=== PATIENT | female | born 1995 | race Two or more races ===

== ENCOUNTER 2021-07-21 10:02 | Emergency (ER) | payer OTHER | END 2021-07-21 11:08 | disposition home or self-care (01) | LOC: CSHERS 10:02 | DX: H66.93 Otitis media, unspecified, bilateral (principal); H10.9 Unspecified conjunctivitis | CPT/HCPCS: 99282 ==

== ENCOUNTER 2024-01-23 18:35 | Emergency (ER) | payer OTHER, SELFPAY ==
[2024-01-23] MEDS ORDERED: Acetaminophen/Codeine 30-300mg Tablet ONE (21:08)
== END 2024-01-23 21:55 | disposition home or self-care (01) ==
LOC: CSHERS 18:35
DX: S00.83XA Contusion of other part of head, initial encounter (principal); Y04.0XXA Assault by unarmed brawl or fight, initial encounter
CPT/HCPCS: 70450; 70486